=== PATIENT | female | born 1995 | race Two or more races ===

== ENCOUNTER 2023-05-01 17:31 | Emergency (ER) | payer MEDICAID, OTHER ==
[~2023-05-01] VITALS: Ht 175.3 cm; Wt 92.7 kg
[2023-05-01 18:45] LABS: Basophils # (auto) 0 10 ^3/uL (0-0.2); Basophils % (auto) 0.6 % (0.0-2.0); Eosinophils # (auto) 0.1 10 ^3/uL (0-0.8); Eosinophils % (auto) 1.4 % (0.0-7.0); Hematocrit 34.5 % (36.0-46.0); Hemoglobin 11.1 g/dL (12.2-16.2); Lymphocytes # (auto) 2.1 10 ^3/uL (0.4-5.4); Lymphocytes % (auto) 32.3 % (10.0-50.0); Mean Corpuscular Hemoglobin 25.5 pg (28.0-32.0); Mean Corpuscular Hgb Conc. 32.3 g/dL (32.0-36.0); Monocytes # (auto) 0.7 10 ^3/uL (0-1.3); Monocytes % (auto) 10.1 % (0.0-12.0); Neutrophils # (auto) 3.6 10 ^3/uL (1.6-8.6); Neutrophils % (auto) 55.6 % (37.0-80.0); Red Blood Cells 4.36 10^6/uL (4.0-5.20); Red Cell Distribution Width 17.2 % (11.8-14.3); White Blood Cell 6.5 10^3/uL (4.4-10.8)
[2023-05-01 18:55] LABS: Albumin 4.5 g/dL (3.2-4.8); Alkaline Phosphatase 58 U/L (46-116); Anion Gap 7 (5-15); Aspartate Aminotransferase 11 U/L (13-40); Bilirubin, Total 0.2 mg/dL (0.2-1.0); Carbon Dioxide 26 mmol/L (20-30); Chloride 103 mmol/L (98-107); Glucose 82 mg/dL (74-106); Potassium 3.2 mmol/L (3.5-5.1); Sodium 136 mmol/L (136-145); Total Protein 7.8 g/dL (5.7-8.2)
[2023-05-01 18:56] LABS: Alanine Aminotransferase < 9 U/L (7-40); BUN/Creatinine Ratio 8.8 (10.0-20.0); Blood Urea Nitrogen < 5 mg/dL (9-23)
[2023-05-01] MEDS ORDERED: SODIUM CHLORIDE 0.9% 1,000 ML IV ONE (20:15)
[2023-05-01] MEDS ORDERED: ONDANSETRON HCL 4 MG/2 ML VIAL IV ONE (20:15)
[2023-05-01] MEDS ORDERED: ACETAMINOPHEN 325 MG TAB PO ONE (20:15)
[2023-05-02 00:15] VITALS: BP 126/86; PULSE 93; RESP 13; TEMP 98; O2SAT 98
[2023-05-02] MEDS ORDERED: ONDANSETRON ODT 4 MG TAB PO ONE (00:30)
[2023-05-02] MEDS ORDERED: ACETAMINOPHEN 325 MG TAB PO ONE (00:30)
== END 2023-05-02 00:32 | disposition left against medical advice (07) ==
LOC: ER 17:31
DX: O20.0 Threatened abortion (principal); R10.2 Pelvic and perineal pain; O26.891 Other specified pregnancy related conditions, first trimester; Z3A.01 Less than 8 weeks gestation of pregnancy
CPT/HCPCS: 36415; 76801; 76817; 80053; 84702; 85025; 99284; Q0162

== ENCOUNTER 2025-01-29 20:22 | Emergency (ER) | payer MEDICAID ==
[~2025-01-29] VITALS: Ht 167.6 cm; Wt 91.6 kg
[~2025-01-29 20:22] MED LIST: PREN-96 PO
[2025-01-29 20:25] VITALS: BP 162/111
--- NOTE | 2025-01-29 23:19 | ED.PDOC ---
History of Present Illness(SKN HPI Comments 29-year-old female presents to ER with complaints of laceration to left hand x1 day. Patient reports that she was holding a steak knife in her right hand to remove the seed of an avocado when the knife slipped and made impact with the palm of her left hand and sustained a "laceration" to this region at 8 p.m. prior to arrival to ER. She reports 9/10 pain to palm of left hand and does report numbness/tingling to left hand. Denies use of medications for current symptoms and is up to date on her tetanus shot. Denies any further symptoms/complaints Chief Complaint: Laceration Time Seen by MD: 20:46 Primary Care Provider: MARTIN History of Present Illness: Nurses Notes, Medications, Allergies Allergies: Coded Allergies: NO KNOWN ALLERGIES (Unverified , 05/01/23) Home Meds Reported Medications Vit W/ Ferrous Fumara ( One Daily) Daily Tab, 1 TAB PO DAILY, #90 TAB 3 Refills 10/26/23 Information Source: Patient Mode of Arrival: Ambulatory Past Medical History PAST MEDICAL HISTORY: Denies Surgical History: Denies all surgeries [employer] History: No Pertinent [employer] History Family History Family History: Unknown Social History Lives In: Home Constitutional: denies: chills, diaphoresis, fatigue, fever, malaise, sweats, weakness, others EENTM: denies: blurred vision, double vision, ear bleeding, ear discharge, ear drainage, ear pain, ear ringing, eye pain, eye redness, hearing loss, mouth pain, mouth swelling, nasal discharge, nose bleeding, nose congestion, nose pain, photophobia, tearing, throat pain, throat swelling, voice changes, others Respiratory: denies: cough, hemoptysis, orthopnea, SOB at rest, shortness of breath, SOB with excertion, stridor, wheezing, others Cardiovascular: denies: chest pain, dizzy spells, diaphoresis, Dyspnea on exertion, edema, irregular heart beat, left arm pain, lightheadedness, palpitations, PND, syncope, others Gastrointestinal: denies: abdomen distended, abdominal pain, blood streaked bowels, constipated, diarrhea, dysphagia, difficulty swallowing, hematemesis, melena, nausea, poor appetite, poor fluid intake, rectal bleeding, rectal pain, vomiting, others Genitourinary: denies: abnormal vagina bleeding, burning, dyspareunia, dysuria, flank pain, frequency, hematuria, incontinence, pain, , vagina discharge, urgency, others Neurological: denies: dizziness, fainting, headache, left sided numbness, left sided weakness, numbness, paresthesia, pre-existing deficit, right sided numbness, right sided weakness, seizure, speech problems, tingling, tremors, weakness, others Musculoskeletal: reports: others (As stated in HPI) Integumetry: reports: others (As stated in HPI) Allergic/Immunocompromised: denies: Difficulty Healing, Frequent Infections, Hives, Itching, others Hematologic/Lymphatic: denies: anemia, blood clots, easy bleeding, easy bruising, swollen glands, others Endocrine: denies: excessive hunger, excessive sweating, excessive thirst, excessive urination, flushing, intolerance to cold, intolerance to heat, unexplained weight gain, unexplained weight loss, others Psychiatric: denies: anxiety, bipolar disorder, depression, hopeless, panic disorder, schizophrenia, sleepless, suicidal, others Physical Exam General Appearance: No Apparent Distress, Obese HEENT: PERRL/EOMI Neck: Full Range of Motion, Non-Tender, Normal Respiratory: Chest Non-Tender, Lungs Clear, No Accessory Muscle Use, No Respiratory Distress, Normal Breath Sounds Cardiovascular: No Murmur, No Gallop, Regular Rate/Rhythm Breast Exam: Deferred Gastrointestinal: NOT DONE Genitalia: Deferred Pelvic: Deferred Rectal: Deferred Extremities: Normal capillary refill, Normal range of motion Neurologic: Alert, No Motor Deficits, Normal Affect, Normal Mood, No Sensory Deficits Cerebellar Function: Normal Reflexes: Normal Skin: Dry, Warm, Other (1 cm abrasion with TTP noted centralized to palmar surface of left 3rd metacarpal. No laceration/foreign body/further skin changes noted. Patient able to fully move all fingers left hand. Pulses intact) Peripheral Pulses: 2+ dorsalis pedis (R), 2+ dorsalis pedis (L) Lymphatic: No Adenopathy Was a procedure done? Was a procedure done?: No Sedation Sedation?: No Differential Diagnosis (INTG) Differential Diagnosis: Open Fracture, Retained Foreign Body, Other (laceration) X-Ray, Labs, Meds, VS Vital Signs Date Time Temp Pulse Resp B/P (MAP) Pulse Ox O2 Delivery O2 Flow Rate FiO2 01/29/25 20:25 98.9 99 18 162/111 100 98.9 Current Medications Medications (Trade) Dose Ordered Sig/Sheng Route Start Time Stop Time Status Last Admin Acetaminophen (Tylenol Tablet) 650 mg ONCE ONCE PO 01/29/25 23:45 01/29/25 23:46 DC 01/29/25 23:50 PATIENT: MURALI OSUNACCT: [id number]: [id number] : 1995 LOC: ER ROOM / BED: / AGE / SEX: 29 / F ADM STATUS: REG ER SERVICE 56 ORDERING PHYSICIAN: EDWIN PONCE PROCEDURE(s): LHAN - L HAND 3V XRAY REASON: left hand pain ORDER NUMBER(s): [id number], ACCESSION NUMBER(s): [id number] INDICATION: left hand pain TECHNIQUE: 3 radiographic views of the left hand were obtained. COMPARISON: None FINDINGS/IMPRESSION: No acute fracture or dislocations. Scattered minimal degenerative changes. No acute soft tissue abnormalities. No radiographic foreign body. ATED BY: SHARI VILLEGAS MD DICTATED DATE/TIME: 01/30/25104 SIGNED BY: SHARI VILLEGAS MD SIGNED DATE/TIME: 01/30/25104 CC: Left hand x-ray reviewed Wound cleaning performed at bedside Tylenol 650 mg p.o. ordered Patient neurovascularly intact Advised to follow up with PCP in 1-2 days Patient verbalized understanding and agreeable with current plan of care Advised to return to ER immediately if symptoms worsen Images Reviewed?: Images reviewed and evaluated by me Time of 1ST Reevaluation: 23:14 Reevaluation 1ST: N/A Patient Education/Counseling: Diagnosis, Treatment, Prognosis, Need For Follow Up Family Education/Counseling: No Family Present SEPSIS Sepsis Screen Date sepsis recognized/suspect: Jan 29, 2025 Time Sepsis recognized/suspect: 2028 Recent Procedure: No On Antibiotic Therapy: No Respiratory Rate >20: No Heart Rate >90: No Temp<36 C (96.8 F) or >38.3 C: No SBP <90 or MAP <65 mmHG: No New Acute Mental Status Change: No Is the patient on CPAP, BIPAP,: No Physician Orders L Hand 3v Xray (01/29/25 22:57) Vital Signs Date Time Temp Pulse Resp B/P (MAP) Pulse Ox O2 Delivery O2 Flow Rate FiO2 01/29/25 20:25 98.9 99 18 162/111 100 98.9 Medications Medications Dose Ordered Sig/Sheng Route Start Time Stop Time Status Last Admin Dose Admin Acetaminophen 650 mg ONCE ONCE PO 01/29/25 23:45 01/29/25 23:46 DC 01/29/25 23:50 Departure 1 Departure Time of Disposition: 23:28 Impression: Primary Impression: Puncture wound of hand, left Qualified Codes: S61.432A - Puncture wound without foreign body of left hand, initial encounter Disposition: HOME / SELF CARE / HOMELESS Condition: Stable Discharged With: Friend Critical Care Note Critical Care Time?: No Stability Stability form required: No Heart Score Heart Score: Heart Score Response (Comments) Value History N/A 0 EKG N/A 0 Age N/A 0 Risk Factors N/A 0 Troponin N/A 0 Total 0 EDWIN PONCE Jan 29, 2025 23:19
[2025-01-29] MEDS ORDERED: TETANUS-DIPTH-ACEL PERTUSSIS 0.5ML SYR Tdap IM ONE (23:30)
[2025-01-29] MEDS: ACETAMINOPHEN 325 MG TAB PO ONE (23:50)
--- NOTE | 2025-01-30 01:07 | DVH ---
INDICATION: left hand pain TECHNIQUE: 3 radiographic views of the left hand were obtained. COMPARISON: None FINDINGS/IMPRESSION: No acute fracture or dislocations. Scattered minimal degenerative changes. No acute soft tissue abnormalities. No radiographic foreign body.
[2025-01-30 01:17] VITALS: PULSE 87; RESP 18; TEMP 98.4; O2SAT 98
== END 2025-01-30 01:20 | disposition home or self-care (01) ==
LOC: ER 20:22
DX: S60.512A Abrasion of left hand, initial encounter (principal); W26.0XXA Contact with knife, initial encounter; Y93.89 Activity, other specified; Y92.89 Other specified places as the place of occurrence of the external cause; Y99.8 Other external cause status
CPT/HCPCS: 73130